=== PATIENT | female | born 1960 | race Caucasian/White ===

== ENCOUNTER 2017-09-23 07:36 | Outpatient (CLI) | payer BC ==
[2017-09-23] VITALS (17 sets, daily range): BP systolic 93–140; BP diastolic 59–85
[~2017-09-23 07:36] MED LIST: METO5TAB98 PO; NO HOME MEDS
== END 2017-09-23 23:59 | disposition home or self-care (01) ==
LOC: CARD DIAG 07:36
PROVIDERS: ATTEND Internal Medicine Interventional Cardiology
DX: R42 Dizziness and giddiness (principal); Z87.891 Personal history of nicotine dependence
CPT/HCPCS: 93660